=== PATIENT | female | born 1930 | race Caucasian/White ===

== ENCOUNTER 2017-10-29 12:18 | Emergency (ER) | payer OTHER ==
[~2017-10-29] VITALS: Ht 172.7 cm; Wt 55.3 kg
[~2017-10-29 12:18] MED LIST: ACETAMINOPHEN-1 EAC1 PO; ACETAMINOPHEN-1 EAC3 PO; ACID CONTROL75 MG PO; ADULT LOW DOSE81 MG PO; ALOE VERA; ASPIRIN81 M2 PO; ATORVASTATIN CA40 MG PO; AVELOX 400 MG400 MG PO; BACTRIM DS TAB1 EACH PO; BENTYL20 MG PO; CARAFATE1 GM/10 ML PO; CHERATUSSIN DA480 ML; CHERATUSSIN DA480 ML PO; CIPRO500 MG PO; CIPROFLOXACIN500 M1 PO; DIAZEPAM 2MG TAB2 MG PO; DOCUSATE SODIU100 MG PO; ESTROGEN; FLAGYL500 MG PO; FLEXERIL PO; FLONASE 0.05%50 MCG NASAL; FLONASE 0.05%50 MCG NS; FLUOXETINE HCL20 M1 PO; HYDROCODON-ACE1 EACH PO; HYDROCODONE-AP1 EAC6 PO; LIPITOR20 MG PO; LISINOPRIL20 MG PO; LISINOPRIL40 MG PO; MACROBID 100 M100 M3; MECLIZINE 25 MG25 M1 PO; MECLIZINE HCL25 M1 PO; MOTION RELIEF25 MG PO; PERCOCET 5-3251 EACH PO; PHENERGAN 25 MG25 M1 PO; POTASSIUM20 PO; PREMARIN1.25 MG PO; PROAIR HFA8.5 GM INH; PROMETHAZINE HC25 MG RECTAL; PROTONIX40 M2 PO; PROVERA10 MG PO; PROZAC 20 MG20 M1 PO; REMERON15 MG PO; SIMVASTATIN80 MG PO; SSD CREAM 1% 5050 G1 TOP; TRANSDERM-SCO1 PATC1 TRANSDERM; VALIUM2 MG PO; VICODIN 5-5001 EACH PO; ZANTAC 7575 MG PO; ZOCOR80 MG PO; ZOFRAN ODT4 MG PO; ZOFRAN4 MG PO; ZPAK PO; ZYRTEC10 M2 PO
[2017-10-29 15:08] VITALS: BP 146/54
== END 2017-10-29 15:09 | disposition home or self-care (01) ==
LOC: M.ERS 12:18
DX: M25.562 Pain in left knee (principal); M25.561 Pain in right knee; S39.92XA Unspecified injury of lower back, initial encounter; K21.9 Gastro-esophageal reflux disease without esophagitis; E78.5 Hyperlipidemia, unspecified; F41.9 Anxiety disorder, unspecified; I10 Essential (primary) hypertension; F32.9 Major depressive disorder, single episode, unspecified; Z88.0 Allergy status to penicillin; Z88.8 Allergy status to other drugs, medicaments and biological substances; Z85.048 Personal history of other malignant neoplasm of rectum, rectosigmoid junction, and anus; W10.8XXA Fall (on) (from) other stairs and steps, initial encounter; Y93.89 Activity, other specified; Y92.89 Other specified places as the place of occurrence of the external cause; Y99.8 Other external cause status

== ENCOUNTER → 2018-05-12 | Outpatient (CLI) | payer OTHER | LOC: M.RAD 11:28 | DX: I10 Essential (primary) hypertension (principal); I70.0 Atherosclerosis of aorta; R91.8 Other nonspecific abnormal finding of lung field; K21.9 Gastro-esophageal reflux disease without esophagitis ==

== ENCOUNTER 2018-09-19 15:59 | Emergency (ER) | payer OTHER ==
[~2018-09-19] VITALS: Ht 172.7 cm; Wt 56.2 kg
[2018-09-19 17:22] VITALS: BP 167/73
== END 2018-09-19 17:23 | disposition home or self-care (01) ==
LOC: M.ERS 15:59
DX: S01.81XA Laceration without foreign body of other part of head, initial encounter (principal); S51.811A Laceration without foreign body of right forearm, initial encounter; K21.9 Gastro-esophageal reflux disease without esophagitis; F32.9 Major depressive disorder, single episode, unspecified; E78.5 Hyperlipidemia, unspecified; F41.9 Anxiety disorder, unspecified; I10 Essential (primary) hypertension; Z88.4 Allergy status to anesthetic agent; Z88.0 Allergy status to penicillin; W01.198A Fall on same level from slipping, tripping and stumbling with subsequent striking against other object, initial encounter; Y92.89 Other specified places as the place of occurrence of the external cause; Y93.89 Activity, other specified; Y99.8 Other external cause status

== ENCOUNTER 2018-09-21 17:25 | Inpatient (IN) | payer OTHER ==
[~2018-09-21] VITALS: Ht 172.7 cm; Wt 57.2 kg
--- NOTE | ~2018-09-21 | CON ---
[address] [address] CONSULTATION Name: MARGARETMARKJARETH BLAIR Room: [address] IN M.R.#: [id number] Admission: 09/21/18 Attend Phys: Sharon Seals MD Discharge: 09/23/18 Date of : 30 Report #: [id number] THIS REPORT FOR: //name// CC: SHARON Mahannton DATE OF SERVICE: 09/23/2018 REQUESTING PHYSICIAN: Dr. Sharon Seals. REASON FOR CONSULT: Abdominal pain, diarrhea, nausea and vomiting. HISTORY OF PRESENT ILLNESS: This is an 87-year-old female with diagnosis of rectal cancer dating back to 2012. The patient never underwent surgery, but had chemoradiation therapy. She has not had a colonoscopy since her chemoradiation. She denies any rectal bleeding, but reports that what prompted her to come to hospital was abdominal pain, which was generalized, associated with some nausea and diarrhea. Since her hospitalization, her diarrhea and abdominal pain has resolved. She no longer complains of nausea. She is comfortably sitting and eating her meal. The patient underwent CT of abdomen and pelvis, which showed some thickening of the colon in proximal transverse colon. There was no leukocytosis, but there was some mild pancytopenia. PAST MEDICAL HISTORY: Significant for history of dyslipidemia, hypertension, gastroesophageal reflux disease, depression, anal cancer, status post chemoradiation therapy without surgery. ALLERGIES: SIGNIFICANT TO DIAZEPAM AND PENICILLIN. MEDICATIONS: Please refer to MAR. SOCIAL HISTORY: The patient lives at home. Denies tobacco or alcohol use. She has supportive daughters. FAMILY HISTORY: Noncontributory. PHYSICAL EXAMINATION: VITAL SIGNS: Reveal blood pressure of 138/49, respirations 18, pulse 71, temperature 98.1. LUNGS: Clear. CARDIOVASCULAR: Regular. ABDOMEN: Soft, nontender, nondistended. Bowel sounds are positive. NEUROLOGIC: The patient is alert and [place] x 3. [place] [address] CONSULTATION Name: NERIS ROBLES Room: [address]#: [id number] Admission: 09/21/18 Attend Phys: Sharon Seals MD Discharge: 09/23/18 Date of : 30 Report #: [id number] SKIN: The patient has periorbital hematoma that she claims it happened to her after falling on ice couple of days prior to admission. LABORATORY DATA: Reveals sodium of 144, potassium 3.5, BUN is 11, creatinine 0.9, glucose is 90, AST 17, ALT 15, with alkaline phosphatase 104. WBC is 3.3, with hemoglobin of 8.8 and platelets of 83. IMAGING: As discussed above. ASSESSMENT AND PLAN: The patient with history of rectal cancer, status post chemoradiation therapy without surgery who presents with abdominal pain and diarrhea. CT suggestive of thickening of the colon in the transverse colon. There is also pancytopenia. Since the patient's symptoms have completely resolved and she is awaiting discharge, we will follow up in the office in a couple of weeks. I told the patient and her daughters that if her symptoms persist, we will consider colonoscopy to further investigate the abnormal finding in CT. The patient and her daughters are agreeable with plan. By: [id number] Roberts MD /nt
[2018-09-21 17:27] VITALS: BP 156/51
[2018-09-21 17:51] LABS: HEMOGLOBIN 10.7 gm/dL (12.0-15.0); MCH 30.3 pg (26.0-34.0); MCHC 32.5 g/dL (28.0-37.0); MCV 93.1 fL (80.0-100.0); MPV 7.1 fl. (7.2-11.1); NUCLEATED RBCS 0 /100WBC; PLATELET COUNT* 113 thou/uL (150-400); RBC 3.54 mil/uL (4.20-5.00); RDW-CV 14.6 % (10.5-14.5); WBC 8.4 thou/uL (4.0-11.0)
[2018-09-21 17:59] LABS: ANION GAP 8 mmol/L (7-16); BUN 19 mg/dL (7-18); CALCIUM 8.4 mg/dL (8.5-10.1); CHLORIDE 108 mmol/L (98-107); CO2 27 mmol/L (21-32); GLUCOSE 102 mg/dL (70-99); POTASSIUM 3.6 mmol/L (3.5-5.1); SODIUM 143 mmol/L (136-145)
[2018-09-21 18:11] LABS: ALBUMIN 3.3 g/dL (3.4-5.0); ALKALINE PHOSPHATASE 104 U/L (46-116); LIPASE 99 U/L (73-393); SGOT 17 U/L (15-37); SGPT 15 U/L (30-65); TOTAL BILIRUBIN 0.5 mg/dL (<0.1-1.0); TOTAL PROTEIN 6.6 g/dL (6.4-8.2); TROPONIN-I LEVEL <0.06 ng/mL (<0.06)
[2018-09-21 18:17] LABS: ABSOLUTE EOSINOPHILS 0.1 thou/uL (0.0-0.7); ABSOLUTE LYMPHOCYTES 0.2 thou/uL (0.8-5.3); ABSOLUTE MONOCYTES 0.3 thou/uL (0.0-1.2); ABSOLUTE NEUTROPHILS 7.8 thou/uL (1.6-8.1)
[2018-09-21 18:22] LABS: PLATELET ESTIMATE DECREASED
[2018-09-21 18:38] LABS: APTT 27.3 Seconds (25.0-31.3); PROTIME 10.3 Seconds (9.20-11.50)
[2018-09-21 19:10] LABS: URINE BILIRUBIN NEGATIVE (Negative); URINE BLOOD NEGATIVE (Negative); URINE CLARITY CLEAR; URINE COLOR YELLOW; URINE GLUCOSE-RANDOM NEGATIVE (Negative); URINE KETONES NEGATIVE (Negative); URINE LEUKOCYTES-REFLEX NEGATIVE (Negative); URINE NITRITE-REFLEX NEGATIVE (Negative); URINE PROTEIN NEGATIVE (Negative); URINE SPECIFIC GRAVITY <= 1.005 (1.005-1.030); URINE UROBILINOGEN 0.2 E.U./dl (0.2-1.0)
[2018-09-21 20:05] VITALS: BP 150/60
[2018-09-21 20:20] VITALS: BP 154/58
[2018-09-22] VITALS: BP 152/53
[2018-09-22 04:00] VITALS: BP 149/60
[2018-09-22 05:28] LABS: HEMATOCRIT 30.1 % (37.0-47.0); HEMOGLOBIN 10.1 gm/dL (12.0-15.0); MCH 31.1 pg (26.0-34.0); MCHC 33.6 g/dL (28.0-37.0); MCV 92.4 fL (80.0-100.0); MPV 7.6 fl. (7.2-11.1); RBC 3.25 mil/uL (4.20-5.00); RDW-CV 15.2 % (10.5-14.5); WBC 4.8 thou/uL (4.0-11.0)
[2018-09-22 05:34] LABS: CALCIUM 8.2 mg/dL (8.5-10.1); CREATININE 0.9 mg/dL (0.6-1.3); MAGNESIUM 1.8 mg/dL (1.8-2.4); POTASSIUM 3.6 mmol/L (3.5-5.1)
--- NOTE | 2018-09-22 06:59 | NUR ---
RECEIVED REPORT AND ASSUMED CARE AT 2015. PT TRANSPORTED FROM ED TO ROOM 210. VSS, CARDIAC MONITORING IN PLACE. PT DENIES COMPLAINTS PAIN. PT ORIENTATED TO ROOM, FALL POLICY, CALL LIGHT. ASSESSMENT COMPELTED CHARTED. ADMISSION COMPLETED BY NURSING. PT UP SBA, ON RA. BED LOCKED IN LOWEST POSITION, CALL LIGHT WITHIN REACH. HOURLY ROUNDING COMPELTED AND ALL NEEDS MET. NURSING WILL CONTINUE TO MONITOR
[2018-09-22 08:20] VITALS: BP 140/55
--- NOTE | 2018-09-22 10:22 | EKG ---
[place] [address] ELECTROCARDIOGRAM REPORT Name: NERIS ROBLES Room: [address] ADM IN .R.#: [id number] Admission: 09/21/18 Attend Phys: Sharon Seals MD Discharge: Date of : 30 Report #: [id number] THIS REPORT FOR: //name// [facility] ED Test Date: 2018-09-21 Test Time: 17:54:57 Pat Name: NERIS ROBLES Department: Room: [facility] Gender: F Oxygen System Tester: EJ : 1930 Requested By: John Lopez Order Number: [id number] MD: Salvador Leblanc Measurements Intervals [place] Rate: 86 P: [place]: QRS: 37 QRSD: 108 T: 48 QT: 388 QTc: 464 Interpretive Statements artifact, nsr mild sinus arrhythmia Compared to ECG 07/08/2017 08:40:14 Sinus rhythm no longer present Electronically Signed On 09-22-2018 10:22:38 AMMONIUM SULFATE OPERATOR by Salvador Leblanc [email or web address] <ELECTRONICALLY SIGNED> By: Salvador Leblanc MD, FAC 09/22/18 1022 1754 1754 Salvador Leblanc MD, [facility] /EPI
--- NOTE | 2018-09-22 10:45 | NUR ---
ASSUMED CARE OF PT THIS AM AROUND 0715- REGIONAL DIRECTOR IN PLACE ORDERED, TRACING SR- UPON ASSESSMENT PT NOTED TO BE RESTING IN BED- PT A&O X4- CONTINENT OF BOWEL AND BLADDER- SBA WITH TRANSFERS FOR SAFETY-LCTA, RESP EVEN AND UN-LABORED- VSS, O2 SAT 94% ON RA- ABD SOFT/ROUND/NON-TENDER, BS X4 QUADS- LAST BM REPORTED 09-21-18- IV NOTED TO LEFT AC INTACT, IVF INFUSSING PRESCIBED- IV ABT GIVEN THIS AM PRESCIBED, NO ADVERSE REACTIONS TO NOTE- CARDIOLOGY HERE TO ASSESS THIS AM WITH ASPIRIN 81MG STARTED AND ECHO ORDERED- GOOD PO INTAKE NOTED THIS AM WITH BREAKFAST- PT DENIES ANY C/O PAIN/DISCOMFORT AT THIS TIME- CALL LIGHT AND PERSONAL BELONGINGS WITH IN REACH- HOURLY ROUNDS IN PLACE R/T SAFETY/NEEDS- ALL NEEDS MET AT THIS TIME-WCTM
[2018-09-22 12:20] VITALS: BP 119/39
--- NOTE | 2018-09-22 14:11 | 2DMMODE ---
[place] [address] 2 D/M-MODE ECHOCARDIOGRAM Name: NERIS ROBLES Room: [address] IN [facility]#: [id number] Admission: 09/21/18 Attend Phys: Sharon Seals, Discharge: Date of : 30 Date of Service: 09/22/18 1411 Report #: [id number] THIS REPORT FOR: //name// APPROVED REPORT Study performed: 09/22/2018 11:06:19 EXAM: Comprehensive 2D, Doppler, and color-flow Echocardiogram Patient Location: In-Patient Room #: 210 Status: routine BSA: 1.65 HR: 77 bpm BP: 140/55 mmHg Rhythm: NSR Other Information Study Quality: Good Indications Atrial Fibrillation 2D Dimensions IVSd: 10.17 (7-11mm) LVOT Diam: 19.50 (18-24mm) LVDd: 43.89 mm PWd: 9.62 (7-11mm) Ascending Ao: 29.71 (22-36mm) LVDs: 24.61 (25-40mm) Aortic Root: 31.77 mm Volumes Left Atrial Volume (Systole) LA ESV Index: 25.60 mL/m2 Aortic Valve AoV Peak Allen.: 1.54 m/s AO Peak Gr.: 9.49 mmHg LVOT Max P.92 mmHg AO Mean Gr.: 5.08 mmHg LVOT Mean P.99 mmHg LVOT Max V: 1.22 m/s AO V2 VTI: 30.16 cm LVOT Mean V: 0.80 m/s MORGAN (VTI): 2.55 cm2 LVOT V1 VTI: 25.72 cm AI [place]: 3.09 m/s2 AI PHT: 374.33 ms Mitral Valve E/A Ratio: 0.77 [place] [address] 2 D/M-MODE ECHOCARDIOGRAM Name: NERIS ROBLES Room: [address] IN .R.#: [id number] Admission: 09/21/18 Attend Phys: Sharon Seals, Discharge: Date of : 30 Date of Service: 09/22/18 1411 Report #: [id number] MV Decel. Time: 227.91 ms MV E Max Allen.: 0.93 m/s MV PHT: 66.09 ms MVA (PHT): 3.33 cm2 TDI E/Lateral E': 11.63 E/Medial E': 11.63 Medial E' Allen.: 0.08 m/s Lateral E' Allen.: 0.08 m/s Pulmonary Valve PV Peak Allen.: 1.06 m/s PV Peak Gr.: 4.52 mmHg Tricuspid Valve RAP Estimate: 5.00 mmHg TR Peak Gr.: 29.45 mmHg RVSP: 34.00 mmHg PA Pressure: 34.00 mmHg Left Ventricle The left ventricle is normal size. There is normal LV segmental wall motion. Borderline concentric left ventricular hypertrophy. Left ventricular systolic function is normal. The left ventricular ejection fraction is within the normal range. LVEF is 65%. Grade I - abnormal relaxation pattern. Right Ventricle The right ventricle is normal size. The right ventricular systolic function is normal. Atria The left atrium size is normal. The right atrium size is normal. Aortic Valve The aortic valve is normal in structure. Mild aortic regurgitation. There is no aortic valvular stenosis. Mitral Valve The mitral valve is normal in structure. There is no mitral valve regurgitation noted. No evidence of mitral valve stenosis. Tricuspid Valve The tricuspid valve is normal in structure. Trace tricuspid regurgitation. Mild pulmonary hypertension[place] [address] 2 D/M-MODE ECHOCARDIOGRAM Name: NERIS ROBLES Room: [address] IN [facility]#: [id number] Admission: 09/21/18 Attend Phys: Sharon Seals, Discharge: Date of : 30 Date of Service: 09/22/18 1411 Report #: [id number] The pulmonary valve is normal in structure. Mild pulmonic regurgitation. Great Vessels The aortic root is normal in size. IVC is normal in size and collapses >50% with inspiration. Pericardium There is no pericardial effusion. <Conclusion> LVEF is 65%. There is normal LV segmental wall motion. Borderline concentric left ventricular hypertrophy. Grade I - abnormal relaxation pattern. Mild aortic regurgitation. There is no aortic valvular stenosis. <ELECTRONICALLY SIGNED> By: Salvador Leblanc MD, FACC 09/22/18 141 141 10 Salvador Leblanc MD, FACC /INF
--- NOTE | 2018-09-22 14:58 | NUR ---
Pt is A&O. Resides at home with her dtr. Independent with ADLs, continues to cook and clean, children provide transportation. Pt has a walker and wc that she can use for mobility. Hx of HH 2012, does not recall with which agency. No hx of SNF. Goal is home at [place], no needs anticipated. Both dtr and Pt do not want HH. Following.
[2018-09-22 15:39] VITALS: BP 127/38
--- NOTE | 2018-09-22 16:44 | NUR ---
PT CURRENTLY RESTING IN BED, FRIEND AT SIDE VISITING- ADMINISTRATIVE ASSISTANT RECEPTIONIST IN PLACE ORDERED, TRACING SR- IV TO LEFT AC INTACT, IVF INFUSSING PRESCIBED- GOOD PO INTAKE NOTED WITH MEALS- ECHO COMPLETED THIS SHIFT PRESCIBED, LVEF NOTED AT 65% WITH MILD AORTIC REGURGITATION- GI CONSULTED R/T COLITIS AND H/O RECTAL CANCER THIS SHIFT- CALL LIGHT AND PERSONAL BELONGINGS WITH IN REACH- PT MAKES NEEDS KNOWN- ALL NEEDS MET AT THIS TIME-WCTM
[2018-09-22 20:14] VITALS: BP 123/45
[2018-09-23] VITALS: BP 130/51
[2018-09-23 04:00] VITALS: BP 148/48
[2018-09-23 05:00] LABS: ABSOLUTE LYMPHOCYTES 0.4 thou/uL (0.8-5.3); ABSOLUTE MONOCYTES 0.3 thou/uL (0.0-1.2); ABSOLUTE NEUTROPHILS 2.5 thou/uL (1.6-8.1); BASOPHILS 0.5 %; EOSINOPHILS 1.3 %; HEMATOCRIT 26.7 % (37.0-47.0); HEMOGLOBIN 8.8 gm/dL (12.0-15.0); LYMPHOCYTES 12.4 %; MCH 30.5 pg (26.0-34.0); MCHC 32.9 g/dL (28.0-37.0); MCV 92.8 fL (80.0-100.0); MPV 7.4 fl. (7.2-11.1); NUCLEATED RBCS 0 /100WBC; PLATELET COUNT* 83 thou/uL (150-400); POLYS 76.8 %; RBC 2.88 mil/uL (4.20-5.00); WBC 3.3 thou/uL (4.0-11.0)
[2018-09-23 05:21] LABS: CALCIUM 8.3 mg/dL (8.5-10.1); CREATININE 0.9 mg/dL (0.6-1.3); POTASSIUM 3.5 mmol/L (3.5-5.1)
--- NOTE | 2018-09-23 05:27 | NUR ---
RECEIVED REPORT AND ASSUMED CARE AT 1900. VSS. CARDIAC MONITORING IN PLACE. PT DENIES ANY COMPLAINTS OF PAIN. ASSESSMENT COMPLETED CHARTED. DISCUSSED PLAN OF CARE WITH PT, VERBALIZED UNDERSTANDING. PT UP SBA, ON RA. BED LOCKED IN LOWEST POSITION, CALL LIGHT WITHIN REACH, BED ALARM ON. HOURLY ROUNDING COMPLETED AND ALL NEEDS MET. NURSING WILL CONTINUE TO MONITOR
[2018-09-23 08:13] VITALS: BP 139/46
--- NOTE | 2018-09-23 09:44 | NUR ---
ASSUMED CARE OF PT THIS AM AROUND 0715- BLADE SHARPENER IN PLACE ORDERED, TRACING SR- UPON ASSESSMENT PT NOTED TO BE RESTING IN BED- PT A&O X4- CONTINENT OF BOWEL AND BLADDER- UP SBA WITH TRANSFRES FOR SAFETY- LCTA, DIMINISHED IN BASES- VSS, O2 SAT 93% ON RA-RESP EVEN AND UN-LABORED- ABD SOFT/ROUND/NON-TENDER, BS X4 QUADS- LAST BM REPORTED 09/22/18- IV NOTED TO RIGHT FA INTACT AND SL- GOOD PO INTAKE NOTED THIS AM WITH BREAKFAST- UP TO BED SIDE CHAIR, TOLERATING WELL- LEFT EYE NOTED WITH BRUSING/SWELLING/BANDAGE IN PLACE INDICATED- IVF D/C'D THIS AM- PT DENIES ANY C/O PAIN/DISCOMFORT AT THIS TIME- CALL LIGHT AND PERSONAL BELONGINGS WITH IN REACH- HOURLY ROUNDS IN PLACE R/T SAFETY/NEEDS- ALL NEEDS MET AT THIS TIME-WCTM
[2018-09-23] MEDS ORDERED: CHILDREN'S ASPI81 MG PO (09:49)
[2018-09-23] MEDS ORDERED: FLAGYL500 M1 PO (09:50)
[2018-09-23] MEDS ORDERED: CIPRO250 M1 PO (09:50)
[2018-09-23 09:53] VITALS: BP 139/46
[2018-09-23 11:42] VITALS: BP 138/49
--- NOTE | 2018-09-23 12:41 | NUR ---
ORDERS RECIEVIED THIS SHIFT FOR OKAY TO D/C HOME POST OT/PT EVAL FOR SAFETY AND IF NEEDED HH- PT/OT HERE TO ASSESS WITH NO NEEDS REPORTED FOR HH- PT AND DAUGHTER REFUSED HH PER CM- IV TO RIGHT FA D/C'D ALONG WITH SILO MAN PRIOR TO D/C- D/C TEACHING/EDUCATION GIVEN TO PT PRIOR TO D/C WITH ALL QUESTIONS AND CONCERNS ADDRESSED- WRITTEN EDUCATION ALONG WITH SCRIPTS PROVIDED TO PT AND DAUGHTER AT TIME OF D/C- BELONGINGS PACKED AND ACCOUNTED FOR PER PT AND DAUGHTER PRIOR TO D/C- LEFT FOREHEAD CLEANED WITH PICTURE OBTAINED AND PLACED ON CHART FOR VIEWING; BANDAIDE REAPPLIED- DRESSING CHANGED TO LEFT FA WITH PICTURE OBTAINED AND PLAED ON CHART FOR VIEWING PRIOR TO D/C- RIGHT FA CLEANED WITH WW, PAT DRY WITH XERFORM GAUZE APPLIED AND COVERED WITH 4X4, WRAPPED WITH GAUZE AND SECURED WITH TAPE PRIOR TO D/C- PT CURRENLTY EATING LUNCH- DAUGHTER AT SIDE AWAITING PT TO BE READY FOR D/C- ALL NEEDS MET AT THIS TIME-WCTM
--- NOTE | 2018-09-23 13:39 | CON ---
[address] [address] CONSULTATION Name: NERIS ROBLES Room: [address] IN M.R.#: [id number] Admission: 09/21/18 Attend Phys: Sharon Seals MD Discharge: 09/23/18 Date of : 30 Report #: [id number] THIS REPORT FOR: //name// CC: Sharon Schulz DATE OF SERVICE: 09/22/2018 INPATIENT CONSULTATION CHIEF COMPLAINT: Nausea, vomiting and fall. HISTORY OF PRESENT ILLNESS: The patient is an 87-year-old female we are asked to see from a cardiovascular standpoint. There was concern she went into atrial fibrillation. She initially presented with nausea and vomiting and weakness, had an acute onset within the last 48 hours. She did have a fall earlier this week and did hit her head, but scanning of her brain was normal. She does have a large ecchymosis over her left eye. There was concern she briefly went into atrial fibrillation; however, I do not have those rhythm strips. There was an ECG where she had artifact in the sinus arrhythmia, but overnight on telemetry, she has remained in a sinus rhythm. She will have some complaints of palpitations, though they are intermittently, only occurring with stress and anxiety and last less than 5 minutes. She has never had a stroke or TIA. Her fall was mechanical; she had slipped outside in the snow. She has been treated for high blood pressure and hyperlipidemia. Her primary care is Dr. Schulz. PAST MEDICAL HISTORY: Hypertension, hyperlipidemia, osteoarthritis, urinary tract infections and chronic vertigo and GERD. ALLERGIES: DIAZEPAM AND PENICILLIN. MEDICATIONS: Her home medications include atorvastatin 40 mg daily, lisinopril 20 mg daily, meclizine p.r.n. and potassium chloride. PAST SURGICAL HISTORY: Prior anal cancer, status post surgery. SOCIAL HISTORY: She is a nonsmoker, does not drink. REVIEW OF SYSTEMS: GASTROINTESTINAL: Positive nausea. Positive vomiting. No hematemesis or melena. CARDIOVASCULAR: No chest pain. Positive palpitations. No orthopnea, no PND and no edema. NEUROLOGIC: Denies headaches, blurry vision or slurred [place] [address] CONSULTATION Name: NERIS ROBLES Room: [address]#: [id number] Admission: 09/21/18 Attend Phys: Sharon Seals MD Discharge: 09/23/18 Date of : 30 Report #: [id number] seizures. HEENT: Eyes, denies any blurred vision or loss of vision. The patient has no history of facial numbness. PULMONARY: No wheezing or cough. SKIN: No rashes. PHYSICAL EXAMINATION: VITAL SIGNS: Blood pressure is 140/55, pulse is 79 and in sinus rhythm. GENERAL: This is a pleasant elderly female. She is sitting on the side of the bed, alert and oriented. HEENT: Head, there is evidence of ecchymosis over her left eye, large. Eyes, EOMs are intact. There is no scleral icterus or bleeding. NEUROLOGIC: No focal deficits. NECK: There is no jugular venous distention. Upstrokes are normal. I cannot hear a bruit. CARDIOVASCULAR EXAMINATION: Regular. There is faint systolic murmur. There is no S3. LUNGS: Clear to auscultation bilaterally. ABDOMEN: Nontender. EXTREMITIES: There is peripheral wasting. There is no peripheral edema. SKIN: There are numerous ecchymoses. LABORATORY DATA: As noted, electrocardiogram on presentation showed a sinus rhythm with normal ST segments. Hemoglobin is 10.1. Sodium is 142, potassium is 3.6, chloride 108, BUN is 13 and creatinine is 0.9. Troponin I is 0.06. Head CT shows senescent changes, age appropriate and no intracranial abnormality. IMPRESSION AND PLAN: 1. Abnormal ECG, questionable atrial fibrillation. At this point in time, I have not seen documented atrial fibrillation, but she may have had this on a rhythm strip in the Emergency Room. She does have complaints of palpitations and numerous AFib risk factors. However, given that she is predominantly in a sinus rhythm and minimally symptomatic, I would proceed with a conservative approach and continue with her home blood pressure medications. I would use only aspirin for anticoagulation. 2. Mechanical fall. At this point, she is not a good candidate for oral anticoagulation given her advanced age and documented fall history. 3. Hypertension. I will order an echocardiogram to assess LV function. She seems to be on appropriate medications. 4. Nausea and vomiting. This seems like a viral syndrome given the acute [address] [place] [address] CONSULTATION Name: NERIS ROBLES Room: [address] IN ..#: [id number] Admission: 09/21/18 Attend Phys: Sharon Seals MD Discharge: 09/23/18 Date of : 30 Report #: [id number] onset. She does also have a history of rectal carcinoma, though. She may have some degree of volume depletion. <ELECTRONICALLY SIGNED> By: Salvador Leblanc MD, FACC 09/23/18 1339 0948 [id number] Leblanc MD, FACC /nt
== END 2018-09-23 13:02 | disposition home or self-care (01) | DRG 371 ==
LOC: M.ERS 17:25 → M.2W 18:20 → M.TBA-ER 18:20 → M.2W 19:37
PROVIDERS: Family Medicine; Internal Medicine; ADMIT Internal Medicine
DX: A04.9 Bacterial intestinal infection, unspecified (principal); J69.0 Pneumonitis due to inhalation of food and vomit; R65.10 Systemic inflammatory response syndrome (SIRS) of non-infectious origin without acute organ dysfunction; D61.818 Other pancytopenia; K21.9 Gastro-esophageal reflux disease without esophagitis; E78.5 Hyperlipidemia, unspecified; F41.9 Anxiety disorder, unspecified; I10 Essential (primary) hypertension; F32.9 Major depressive disorder, single episode, unspecified; M19.90 Unspecified osteoarthritis, unspecified site; R58 Hemorrhage, not elsewhere classified; E86.0 Dehydration; I48.91 Unspecified atrial fibrillation; Z85.048 Personal history of other malignant neoplasm of rectum, rectosigmoid junction, and anus; Z92.21 Personal history of antineoplastic chemotherapy; Z92.3 Personal history of irradiation; Z88.0 Allergy status to penicillin; Z88.8 Allergy status to other drugs, medicaments and biological substances; Z79.899 Other long term (current) drug therapy

== ENCOUNTER 2018-10-26 18:24 | Inpatient (IN) | payer OTHER ==
[~2018-10-26] VITALS: Ht 172.7 cm; Wt 53.5 kg
[~2018-10-26 18:24] MED LIST changes: +CHILDREN'S ASPI81 MG PO; +CIPRO250 M1 PO; +FLAGYL500 M1 PO
[2018-10-26 18:38] VITALS: BP 141/48
[2018-10-26 19:13] LABS: HEMATOCRIT 34.6 % (37.0-47.0); HEMOGLOBIN 11.4 gm/dL (12.0-15.0); MCH 30.1 pg (26.0-34.0); MCHC 32.9 g/dL (28.0-37.0); MCV 91.4 fL (80.0-100.0); MPV 7.2 fl. (7.2-11.1); NUCLEATED RBCS 0 /100WBC; PLATELET COUNT* 162 thou/uL (150-400); RBC 3.79 mil/uL (4.20-5.00); RDW-CV 13.7 % (10.5-14.5); WBC 6.3 thou/uL (4.0-11.0)
[2018-10-26 19:28] LABS: APTT 28.3 Seconds (25.0-31.3)
[2018-10-26 19:32] LABS: POTASSIUM 3.8 mmol/L (3.5-5.1); TROPONIN-I LEVEL 0.09 ng/mL (<0.06)
[2018-10-26 19:34] LABS: CALCIUM 9.3 mg/dL (8.5-10.1)
[2018-10-26 19:45] LABS: ALBUMIN 3.4 g/dL (3.4-5.0); TOTAL BILIRUBIN 0.3 mg/dL (<0.1-1.0); TOTAL PROTEIN 7.4 g/dL (6.4-8.2)
[2018-10-26 19:48] LABS: ABSOLUTE LYMPHOCYTES 0.3 thou/uL (0.8-5.3); ABSOLUTE MONOCYTES 0.2 thou/uL (0.0-1.2); ABSOLUTE NEUTROPHILS 5.9 thou/uL (1.6-8.1); PLATELET ESTIMATE ADEQUATE
[2018-10-26 21:24] VITALS: BP 140/55
--- NOTE | 2018-10-26 21:25 | NUR ---
REPORT TAKEN FROM QI, AWAITING PATIENT'S ARRIVAL.
[2018-10-26 21:40] VITALS: BP 145/62
[2018-10-27] VITALS: BP 111/65
[2018-10-27 04:00] VITALS: BP 127/52
--- NOTE | 2018-10-27 04:55 | NUR ---
PATIENT RESTED IN BED, NO ACUTE CHANGES. PATIENT DID NOT SHOW SIGNS OF DISTRESS OR SOA. FALL PRECAUTIONS IN PLACE, CALL LIGHT WITHIN REACH, HOURLY ROUNDING OBSERVED, BED ALARM ON.
[2018-10-27 08:00] VITALS: BP 131/51
[2018-10-27 12:04] VITALS: BP 123/63
--- NOTE | 2018-10-27 12:04 | NUR ---
Nutrition: Consult received for "weight change." Per [facility], pt weighed ~130s in 2012. Then, pt has weighed 120-130# since 2016. Does not appear to be any significant wt change for several yrs. Pt is admitted with PNA. H/o anal cancer/chemo/RAD, GERD. Takes albuterol, aspirin. Current wt: 120#. Currently NPO. Underweight R/T physique AEB BMI 18.3 despite stable wt x several yrs. RD will follow for diet order, need for supplement, po intake, labs, wt, 11/01/18.
--- NOTE | 2018-10-27 12:51 | NUR ---
PT ALERT AND ORIENTED. TELE TRACKIN NSR AND ALL VSS ON ROOM AIR. PT DENIES CP, SOA. STATES SHE IS FEELING BETTER. FAMILY AT BEDSIDE. EDUCATED ON SAFETY AND PLAN OF CARE. PLEASE SEE ASSESSMENT FOR ADDITIONAL INFORMATION. WILL CONTINUE TO MONITOR
--- NOTE | 2018-10-27 13:44 | NUR ---
MET WITH PT AND DTR/ESTELA TO DISCUSS HOME SITUATION/DC PLANNING. PT LIVES WITH HER DTR/NEDRA. PT IS INDEPENDENT WITH ADLS. USES NO EQUIPMENT BUT HAS A WALKER AND W/C IF NEEDED. SHE HASN'T HAD HH OR BEEN TO SNF. DTR/ESTELA IS DPOA. PT DENIES DC NEEDS AND WANTS TO GO HOME SOON. WILL FOLLOW
[2018-10-27 16:20] VITALS: BP 128/48
--- NOTE | 2018-10-27 18:23 | EKG ---
[place] [address] ELECTROCARDIOGRAM REPORT Name: MARGARETNERIS Room: [address] ADM IN .R.#: [id number] Admission: 10/26/18 Attend Phys: Eileen Slade Discharge: Date of : 30 Report #: [id number] THIS REPORT FOR: //name// [facility] Test Date: 2018-10-26 Test Time: 18:58:05 Pat Name: NERIS ROBLES Department: Room: [facility] Gender: Senior Cyber Intelligence Analyst: Alejandro PIERCE : 1930 Requested By: Karena Miranda Order Number: [id number] : Murali Greene Measurements Intervals [place] Rate: 92 P: 73 [place]: 171 QRS: 46 QRSD: 94 T: 37 QT: 361 QTc: 447 Interpretive Statements Sinus rhythm Compared to ECG 09/21/2018 17:54:57 Sinus arrhythmia no longer present Electronically Signed On 10-27-2018 18:23:22 CHEMISTRY ACCOUNT MANAGER by Murali Greene [email or web address] <ELECTRONICALLY SIGNED> By: Murali Greene MD, [facility] 10/27/18 1823 57 57 Murali Greene MD, FACC /EPI
[2018-10-27 18:55] LABS: URINE BILIRUBIN NEGATIVE (Negative); URINE BLOOD 2+ (Negative); URINE CLARITY SL CLOUDY; URINE COLOR YELLOW; URINE GLUCOSE-RANDOM NEGATIVE (Negative); URINE KETONES NEGATIVE (Negative); URINE LEUKOCYTES-REFLEX 1+ (Negative); URINE NITRITE-REFLEX NEGATIVE (Negative); URINE PROTEIN NEGATIVE (Negative); URINE SPECIFIC GRAVITY >= 1.030 (1.005-1.030); URINE UROBILINOGEN 0.2 E.U./dl (0.2-1.0)
[2018-10-27 19:01] LABS: CASTS None Seen /LPF (None Seen); CRYSTALS None Seen /LPF (None Seen); SQUAMOUS 0-3 Few /LPF (0-3); URINE RBC 3-10 Few /HPF (0-2); URINE WBC-REFLEX >25 Many /HPF (0-5)
[2018-10-27 20:00] VITALS: BP 132/61
[2018-10-28] VITALS: BP 131/61
[2018-10-28 04:00] VITALS: BP 133/91
--- NOTE | 2018-10-28 04:35 | NUR ---
PATIENT RESTED IN BED, NO ACUTE CHANGES. PATIENT DID NOT SHOW SIGNS OF SOA OR DISTRESS. FALL PRECAUTIONS IN PLACE, CALL LIGHT WITHIN REACH, HOURLY ROUNDING OBSERVED, BED ALARM ON.
[2018-10-28 05:02] LABS: ABSOLUTE LYMPHOCYTES 0.4 thou/uL (0.8-5.3); ABSOLUTE MONOCYTES 0.2 thou/uL (0.0-1.2); ABSOLUTE NEUTROPHILS 2.6 thou/uL (1.6-8.1); BASOPHILS 0.3 %; EOSINOPHILS 0.9 %; HEMATOCRIT 28.3 % (37.0-47.0); LYMPHOCYTES 13.1 %; MCH 29.8 pg (26.0-34.0); MCHC 32.8 g/dL (28.0-37.0); MONOCYTES 6.5 %; MPV 7.4 fl. (7.2-11.1); NUCLEATED RBCS 0 /100WBC; PLATELET COUNT* 116 thou/uL (150-400); POLYS 79.2 %; RBC 3.11 mil/uL (4.20-5.00); RDW-CV 14.2 % (10.5-14.5); WBC 3.2 thou/uL (4.0-11.0)
[2018-10-28 05:11] LABS: CREATININE 0.9 mg/dL (0.6-1.3); POTASSIUM 3.6 mmol/L (3.5-5.1)
[2018-10-28 05:24] LABS: HEMOGLOBIN 9.3 gm/dL (12.0-15.0)
[2018-10-28 08:00] VITALS: BP 130/50
--- NOTE | 2018-10-28 08:00 | NUR ---
ASSUMED PT CARE AT 0700, PT LYING IN BED, CALL LIGHT IN REACH, FALL PRECAUTIONS IN PLACE. A&O X4, UP WITH STANDBY ASSIST. SHOWPLACE MANAGER TRACING SINUS RHYTHM, VSS, REMAINS ON RA, LS COARSE. DENIES ANY SOA OR PAIN AT THIS TIME. WILL CONT POC.
[2018-10-28 12:54] VITALS: BP 105/63
[2018-10-28 16:00] VITALS: BP 125/46
--- NOTE | 2018-10-28 19:03 | NUR ---
PT LYING IN BED, CALL LIGHT IN REACH, FALL PRECAUTIONS IN PLACE. VSS, REMAINS ON RA, LS COARSE, DENIES ANY SOA/PAIN. IV ANTIBIOTICS DISCONTINUED AND STARTED ON PO ABTS, PT TOLERATING WELL AND EXPRESSING DESIRE TO GO HOME, POSSIBLE DC HOME TOMORROW. A&O X4, UP WITH STANDBY, HOURLY ROUNDING COMPLETED, REMAINS SINUS RHYTHM ON LEAD ATG DEVELOPER.
[2018-10-28 20:00] VITALS: BP 141/66
[2018-10-29] VITALS: BP 129/50
[2018-10-29 04:00] VITALS: BP 133/58
--- NOTE | 2018-10-29 05:13 | NUR ---
PATIENT RESTED IN BED, NO ACUTE CHANGES. PATIENT DOES NOT APPEAR TO BE IN DISTRESS. PATIENT DID NOT SHOW SIGNS OF SOA. FALL PRECAUTIONS IN PLACE, CALL LIGHT WITHIN REACH, HOURLY ROUNDING OBSERVED, BED ALARM ON.
[2018-10-29 06:14] LABS: ABSOLUTE EOSINOPHILS 0.1 thou/uL (0.0-0.7); ABSOLUTE LYMPHOCYTES 0.4 thou/uL (0.8-5.3); ABSOLUTE MONOCYTES 0.2 thou/uL (0.0-1.2); ABSOLUTE NEUTROPHILS 1.7 thou/uL (1.6-8.1); BASOPHILS 0.5 %; EOSINOPHILS 2.2 %; HEMATOCRIT 29.7 % (37.0-47.0); HEMOGLOBIN 9.8 gm/dL (12.0-15.0); LYMPHOCYTES 17.1 %; MCH 29.9 pg (26.0-34.0); MCHC 32.8 g/dL (28.0-37.0); MCV 91.2 fL (80.0-100.0); MPV 7.2 fl. (7.2-11.1); NUCLEATED RBCS 0 /100WBC; PLATELET COUNT* 117 thou/uL (150-400); POLYS 73.2 %; RBC 3.26 mil/uL (4.20-5.00); RDW-CV 14.4 % (10.5-14.5); WBC 2.3 thou/uL (4.0-11.0)
[2018-10-29 08:00] VITALS: BP 140/66
--- NOTE | 2018-10-29 10:24 | NUR ---
PT ALERT AND ORIENTED. TELE TRACKING NSR AND ALL VSS ON ROOM AIR. PT DENIES CP, SOA. PT STATES SHE IS LOOKING FORWARD TO DISCHARGE TODAY. EDUCATEDON SAFETY AND PLAN OF CARE. PLEASE SEE ASSESSMENT FOR ADDITIONAL INFORMATION. WILL CONTINUE TO MONITOR
[2018-10-29 12:00] VITALS: BP 133/67
[2018-10-29] MEDS ORDERED: CEFUROXIME500 MG PO (13:06)
[2018-10-29] MEDS ORDERED: AZITHROMYCIN 2250 MG PO (13:06)
[2018-10-29] MEDS ORDERED: PRENATAL PO (13:07)
[2018-10-29 14:28] VITALS: BP 140/66
== END 2018-10-29 14:52 | disposition home or self-care (01) | DRG 871 ==
LOC: M.ERS 18:24 → M.TBA-ER 19:51 → M.2W 19:51
PROVIDERS: Emergency Medicine; Family Medicine; Nurse Practitioner; ADMIT Internal Medicine
DX: A41.9 Sepsis, unspecified organism (principal); J15.9 Unspecified bacterial pneumonia; D61.818 Other pancytopenia; N18.3 Chronic kidney disease, stage 3 (moderate); K21.9 Gastro-esophageal reflux disease without esophagitis; E78.5 Hyperlipidemia, unspecified; F41.9 Anxiety disorder, unspecified; E61.1 Iron deficiency; I12.9 Hypertensive chronic kidney disease with stage 1 through stage 4 chronic kidney disease, or unspecified chronic kidney disease; F32.9 Major depressive disorder, single episode, unspecified; Z88.0 Allergy status to penicillin; Z88.8 Allergy status to other drugs, medicaments and biological substances; Z85.048 Personal history of other malignant neoplasm of rectum, rectosigmoid junction, and anus; Z92.21 Personal history of antineoplastic chemotherapy; Z92.3 Personal history of irradiation; Z79.82 Long term (current) use of aspirin; Z79.899 Other long term (current) drug therapy; Z85.038 Personal history of other malignant neoplasm of large intestine

== ENCOUNTER 2018-11-09 13:15 | Inpatient (IN) | payer OTHER ==
[~2018-11-09] VITALS: Ht 175.3 cm; Wt 50.8 kg
[~2018-11-09 13:15] MED LIST changes: +AZITHROMYCIN 2250 MG PO; +CEFUROXIME500 MG PO; +PRENATAL PO
[2018-11-09 13:22] VITALS: BP 154/67
[2018-11-09 13:37] LABS: HEMATOCRIT 35.6 % (37.0-47.0); HEMOGLOBIN 11.6 gm/dL (12.0-15.0); MCHC 32.7 g/dL (28.0-37.0); MCV 91.8 fL (80.0-100.0); MPV 7.1 fl. (7.2-11.1); NUCLEATED RBCS 0 /100WBC; PLATELET COUNT* 108 thou/uL (150-400); RBC 3.88 mil/uL (4.20-5.00); RDW-CV 14.2 % (10.5-14.5); WBC 5.1 thou/uL (4.0-11.0)
[2018-11-09 13:46] LABS: PROTIME 10.4 Seconds (9.20-11.50)
[2018-11-09 14:07] LABS: ABSOLUTE LYMPHOCYTES 0.1 thou/uL (0.8-5.3); ABSOLUTE MONOCYTES 0.3 thou/uL (0.0-1.2); ABSOLUTE NEUTROPHILS 4.7 thou/uL (1.6-8.1)
[2018-11-09 14:09] LABS: ANISOCYTOSIS 1+; PLATELET ESTIMATE DECREASED; POIKILOCYTOSIS 1+
[2018-11-09 14:10] LABS: ALKALINE PHOSPHATASE 90 U/L (46-116); ANION GAP 9 mmol/L (7-16); BUN 17 mg/dL (7-18); CALCIUM 9.1 mg/dL (8.5-10.1); CHLORIDE 101 mmol/L (98-107); CO2 26 mmol/L (21-32); GLUCOSE 103 mg/dL (70-99); NT-PRO BRAIN NAT PEPTIDE 659 pg/mL (<300); POTASSIUM 4.1 mmol/L (3.5-5.1); SGOT 28 U/L (15-37); SGPT 26 U/L (30-65); SODIUM 136 mmol/L (136-145); TOTAL BILIRUBIN 0.6 mg/dL (<0.1-1.0); TOTAL PROTEIN 7.7 g/dL (6.4-8.2); TROPONIN-I LEVEL <0.06 ng/mL (<0.06)
[2018-11-09 15:00] LABS: INFLUENZA B ANTIGEN None Detected (None Detect)
--- NOTE | 2018-11-09 16:10 | EKG ---
[place] [address] ELECTROCARDIOGRAM REPORT Name: NERIS ROBLES Room: [place] [address] ADM IN .R.#: [id number] Admission: 11/09/18 Attend Phys: Prasanna Mckeon MD Discharge: Date of : 30 Report #: [id number] THIS REPORT FOR: //name// [facility] ED Test Date: 2018-11-09 Test Time: 13:29:20 Pat Name: NERIS ROBLES Department: Room: [facility] Gender: F Clerical Warehouseman: : 1930 Requested By: John Lopez Order Number: [id number] MD: Murali Greene Measurements Intervals [place] Rate: 95 P: 73 MA: 164 QRS: 59 QRSD: 100 T: 60 QT: 340 QTc: 428 Interpretive Statements Sinus rhythm Compared to ECG 10/26/2018 18:58:05 No significant changes Electronically Signed On 11-09-2018 16:10:44 MEASUREMENT SUPERVISOR by Murali Greene [email or web address] <ELECTRONICALLY SIGNED> By: Murali Greene MD, [facility] 11/09/18 1610 1329 1329 Murali Greene MD, FACC /EPI
[2018-11-09 16:11] VITALS: BP 138/49
[2018-11-09 20:00] VITALS: BP 130/60
[2018-11-10] VITALS: BP 142/62
[2018-11-10 03:45] LABS: HEMATOCRIT 29.7 % (37.0-47.0); MCH 30.6 pg (26.0-34.0); MCHC 33.6 g/dL (28.0-37.0); MCV 91.1 fL (80.0-100.0); MPV 7.4 fl. (7.2-11.1); RBC 3.27 mil/uL (4.20-5.00); RDW-CV 14.3 % (10.5-14.5); WBC 4.9 thou/uL (4.0-11.0)
[2018-11-10 04:00] VITALS: BP 131/49
[2018-11-10 04:03] LABS: CALCIUM 8.9 mg/dL (8.5-10.1); CREATININE 1.1 mg/dL (0.6-1.3); MAGNESIUM 1.7 mg/dL (1.8-2.4); POTASSIUM 3.9 mmol/L (3.5-5.1)
[2018-11-10 07:40] VITALS: BP 141/48
[2018-11-10 12:10] VITALS: BP 120/43
[2018-11-10 18:11] VITALS: BP 156/76
[2018-11-10 20:00] VITALS: BP 135/41
[2018-11-11 00:29] VITALS: BP 131/51
[2018-11-11 03:31] VITALS: BP 120/50
--- NOTE | 2018-11-11 07:34 | CON ---
[address] [address] CONSULTATION Name: MARK ROBLESLASHAUNMONO BLAIR Room: [address] IN .R.#: [id number] Admission: 11/09/18 Attend Phys: Prasanna Mckeon MD Discharge: Date of : 30 Report #: [id number] THIS REPORT FOR: //name// CC: Prasanna Schulz DO DATE OF SERVICE: 11/10/2018 PULMONARY CONSULTATION PATIENT LOCATION: She is located in room 316. ATTENDING PHYSICIAN: Prasanna Mckeon M.D. PRIMARY CARE PHYSICIAN: Lon Schulz DO. INDICATION FOR CONSULTATION: Moderately severe COPD, chronic bronchitis, bronchiectasis and Pseudomonas on sputum. CLINICAL SUMMARY: The patient is an 87-year-old female, nonsmoker with chronic bronchitis for the past several years. The patient was just recently discharged on antibiotics for pneumonia in late October or early November of 2018 from [facility]. She went home on cefuroxime and supposedly was taking the medication. Prior to discharge on 10/28/2018 and 10/27/2018, sputum was collected. It showed a pansensitive Pseudomonas aeruginosa. The patient was just taking her breathing treatments just as needed at home. She is not on any oxygen at home. She has not been steroid dependent for her COPD in the past. She is chronically more short of breath, has difficulty going up a flight of stairs at home. She has some cough and some congestion. She thinks maybe once or twice a year, she has to use antibiotics for bronchitis and colds. She denies any esophageal reflux, although she has seen Dr. Dougherty several times and actually had one set of food bolus that had to be extracted. She has been dilated once in her esophagus also. Also denies any sinus drainage currently. Denies any frequent urinary tract infections. PAST MEDICAL HISTORY: She has had some osteoarthritis. She has had COPD and chronic bronchitis. She has had intermittent atrial fibrillation, Pseudomonas on her sputum. She has had frequent urinary tract infections, vertigo and weakness. ALLERGIES: SHE HAS ALLERGIES OR INTOLERANCES TO DIAZEPAM, WHICH GIVES HER NAUSEA, HEADACHE AND CONFUSION AND PENICILLIN, WHICH GIVES HER NAUSEA. OUTPATIENT MEDICATIONS: Reported as lisinopril 20 mg daily, [place] [address] CONSULTATION Name: NERIS ROBLES Room: [address]#: [id number] Admission: 11/09/18 Attend Phys: Prasanna Mckeon MD Discharge: Date of : 30 Report #: [id number] 20 mEq daily, atorvastatin 40 mg daily and aspirin 81 mg daily. The patient was also supposed to be on DuoNebs nebulizer treatments at home and albuterol inhaler and ProAir 2 puffs 4 times a day as needed. OTHER PAST MEDICAL HISTORY: Includes: 1. History of anorectal carcinoma in 2013, underwent chemo and radiation therapy. No evidence of recurrence. 2. Gastroesophageal reflux disease with some gastric ulcers. 3. In 2013, immunosuppression and nausea, vomiting, diarrhea with some pneumonia. 4. Hyperlipidemia. 5. Vertigo. 6. Hypertension. FAMILY HISTORY: Negative for premature cardiopulmonary disease. SOCIAL HISTORY: The patient is a remote smoker. She states smoked maybe 10-15 pack years; she quit 30-40 years ago. Denies alcohol or illicit drug use. REVIEW OF SYSTEMS: A 14-point review of systems reviewed and negative, except for pertinent positives noted in the HPI. PHYSICAL EXAMINATION: GENERAL: This is a pleasant, alert 87-year-old female, somewhat frail, but in no acute distress. VITAL SIGNS: Blood pressure is 120/53, heart rate 68, respirations 16, temperature is 36.9 degrees and room air sat is 94%. She is 5 feet 8 inches tall, weight 51 kilograms or 106 pounds and BMI is low at 16. HEENT: Nares and pharynx are relatively clear. Dentition is only fair; some carious teeth noted. NECK: Supple, without nodes. CHEST: Shows a few rhonchi with prolonged expiratory phase. No definite wheezing noted bilaterally. Thin chest wall is noted. CARDIOVASCULAR: Shows diminished heart tones, regular rate and rhythm. Heart rate 68. No murmur, gallop or rub. ABDOMEN: Soft, without masses or megaly. EXTREMITIES: No calf tenderness. No cyanosis, clubbing or edema. SKIN: Dry and intact. NEUROLOGIC: Nonfocal and moves all fours to commands. LABORATORY DATA: Laboratory from 11/10/2018, hemoglobin was 10, white count was 4900 and platelets were slightly low at 80,000, previously 108,000. Normal differential was noted, except for decreased lymphocyte count. Today, sodium is 135, potassium is 3.9, carbon dioxide is 26, BUN is 20, creatinine is 1.1 and glucose 142. Magnesium is 1.7. LFTs within normal limits. NT-proBNP slightly elevated at 659 and albumin was 4. Serology: Influenza A was positive and [address] [address] CONSULTATION Name: NERIS ROBLES Room: [address] IN [facility]#: [id number] Admission: 11/09/18 Attend Phys: Prasanna Mckeon MD Discharge: Date of : 30 Report #: [id number] influenza B was negative. MRSA was negative. Chest x-ray and CT chest shows COPD, hyperinflation and a lingular infiltrate and bronchiectatic changes and also right middle lobe bronchiectatic changes. Sputum from 10/27/2018 and 10/28/2018 shows Pseudomonas aeruginosa which is pansensitive to levofloxacin and also ciprofloxacin. MICs are less than 1 for both. Tobramycin also was sensitive. No PFTs on this patient at this time. She is on room air. IMPRESSION: 1. Chronic bronchitis and bronchiectasis. 2. Pseudomonas aeruginosa bronchitis, chronic infection. 3. Influenza A, on therapy. PLAN: Continue current medical regimen. She is on oral steroid taper. We will add oral and inhaled bronchodilators. She is on levofloxacin 750 mg p.o. daily. We would probably treat her for 10-14 days along with some probiotics so that she does not develop any C. difficile colitis. She needs to be a little bit more aggressive with her nebulizer treatments at home and use those twice to 4 times a day. She also needs to work on her incentive spirometer. She can only reach about 500 mL on her incentive spirometer and also work on her flutter valve. A Hill-Rom vest with vibrations for 20 minutes 3-4 times a day might be another option, but elderly frail patients sometimes can have rib fractures and rib contusions with the Hill-Rom vest, so need to tread lightly with that. I do not think she needs a bronchoscopy, at least at this time, but we will certainly rule out Mycobacterium Avium-Intracellulare infections and other predisposing infections. May need full PFTs in the future when she resolves. Other options would be to use ciprofloxacin at 250 mg or 500 mg a day for 2-4 weeks or even inhaled tobramycin, add once daily for suppressive therapy. Pseudomonas is very hard and difficult to eradicate. May need to check her immunoglobulins IgG, IgA, and IgM to make sure she is not immune deficient. She does have some pancytopenia with low white count and low platelets that may need to be worked up, whether she has some low level myelofibrosis syndrome at this time and possibly be immune suppressed. Thanks again for allowing us to participate in this lady's care. We will follow up along with you while she is in the hospital. <ELECTRONICALLY SIGNED> By: Nam Caraballo MD 11/11/18 0734 1424 [id number] Caraballo MD /nt
--- NOTE | 2018-11-11 07:55 | CON ---
[address] [address] CONSULTATION Name: NERIS ROBLES Room: [address] IN M.R.#: [id number] Admission: 11/09/18 Attend Phys: Prasanna Mckeon MD Discharge: Date of : 30 Report #: [id number] THIS REPORT FOR: //name// CC: Prasanna Schulz DATE OF SERVICE: 11/10/2018 INFECTIOUS DISEASE CONSULTATION ATTENDING PHYSICIAN: Prasanna Mckeon MD REASON FOR EVALUATION: Influenza A complicated by dyspnea, cough and fever. HISTORY OF PRESENT ILLNESS: Chart reviewed, patient examined. This is an 87-year-old woman with a history of colorectal carcinoma who has actually been hospitalized now for the third time this year primarily pulmonary related who was just discharged on 10/26 at that time felt to have pneumonitis, sputum culture with growth of Pseudomonas that was generally susceptible and also had urine culture with Citrobacter as well. She had been treated with parenteral therapy and switched to oral. She returned to the Emergency Room with complaints of above noted cough, fever and progressive shortness of breath for the 48 hours prior, apparently probable contact with a person with influenza A. She was evaluated and was found to have a positive influenza A antigen. X-ray showed some chronic changes as did CT, nothing acute with a normal white count and lactic acid of 1.0. Started empirically on combination therapy with cefepime, vancomycin and has had Tamiflu. At this point, she states she feels fairly well. She has not had significant temperature elevations, high being 99.6. She does have a persistent cough and feels weak. She is not currently on supplemental oxygen at this point. ALLERGIES: LISTED TO PENICILLINS. CURRENT MEDICATIONS: Include levofloxacin, vitamin, aspirin, atorvastatin, lisinopril, prednisone, vancomycin, oseltamivir, cefepime, ipratropium albuterol inhaler and hydrocodone. PAST MEDICAL HISTORY: As described above. Colorectal carcinoma, reflux, dyslipidemia, anxiety, vertigo, hypertension and depression. SOCIAL HISTORY: Former smoker. No ethanol and no illicit drug use. FAMILY HISTORY: Noncontributory. REVIEW OF SYSTEMS: Denies any significant gastrointestinal related complaints. She has not had recent fevers. Otherwise, a 10-point [place] [address] CONSULTATION Name: MARGARET,ARJRAETH BLAIR Room: [address]#: [id number] Admission: 11/09/18 Attend Phys: Prasanna Mckeon MD Discharge: Date of : 30 Report #: [id number] unremarkable with exception noted above in the history of present illness. PHYSICAL EXAMINATION: GENERAL: She appears her stated age, in mild distress at this point, likely mildly undernourished, somewhat chronically ill appearing. She is pleasant and cooperative. VITAL SIGNS: Temperature 98.4, pulse 68, respirations 18, blood pressure 120/43. SKIN: Warm and dry. HEENT: Normocephalic. Extraocular muscles are intact. NECK: Supple. LUNGS: Few scattered crackles at the bases. HEART: Regular, I do not appreciate a murmur. ABDOMEN: Soft, nontender and nondistended. There are no peritoneal signs. GENITOURINARY: Deferred. RECTAL: Deferred. LABORATORY DATA: Blood cultures sterile thus far. Electrolytes: Sodium 135, potassium 3.9, chloride 100, bicarbonate is 26, BUN and creatinine 20 and 1.1 and glucose of 142. Estimated GFR 47. CBC: White count of 4.9, H and H 10.0/29.7 and platelets of 80. CT of the chest showed no acute process. Influenza A antigen was positive. ASSESSMENT: Influenza in the setting of recent hospitalization, had isolation of Pseudomonas prior to this, although imaging studies do not suggest an acute process. I think it is reasonable to pare down therapy. I think the risk/benefits are probably outweighed by concern about adverse drug effects in this elderly lady. We will monitor expectantly. <ELECTRONICALLY SIGNED> By: Indio Kwong MD 11/11/18 0755 1521 [id number] Kwong MD /nt
[2018-11-11 09:30] VITALS: BP 114/48
[2018-11-11 12:00] VITALS: BP 117/47
[2018-11-11 16:00] VITALS: BP 129/48
[2018-11-12] VITALS: BP 111/50
[2018-11-12 04:23] LABS: ABSOLUTE LYMPHOCYTES 0.2 thou/uL (0.8-5.3); ABSOLUTE MONOCYTES 0.2 thou/uL (0.0-1.2); ABSOLUTE NEUTROPHILS 3.5 thou/uL (1.6-8.1); BASOPHILS 0.1 %; HEMATOCRIT 28.6 % (37.0-47.0); HEMOGLOBIN 9.4 gm/dL (12.0-15.0); LYMPHOCYTES 5.5 %; MCHC 32.8 g/dL (28.0-37.0); MCV 91.6 fL (80.0-100.0); MONOCYTES 6.1 %; MPV 7.7 fl. (7.2-11.1); NUCLEATED RBCS 0 /100WBC; PLATELET COUNT* 90 thou/uL (150-400); POLYS 88.3 %; RBC 3.12 mil/uL (4.20-5.00); RDW-CV 14.9 % (10.5-14.5)
[2018-11-12 04:34] VITALS: BP 112/50
[2018-11-12 04:46] LABS: CALCIUM 8.8 mg/dL (8.5-10.1); CREATININE 1.1 mg/dL (0.6-1.3); MAGNESIUM 2.1 mg/dL (1.8-2.4)
[2018-11-12 09:16] VITALS: BP 116/41
[2018-11-12 16:19] VITALS: BP 121/56
[2018-11-13 01:18] VITALS: BP 157/60
[2018-11-13 10:20] VITALS: BP 139/58
[2018-11-13 17:23] VITALS: BP 133/50
[2018-11-14] VITALS: BP 142/63
[2018-11-14 04:00] VITALS: BP 141/72
[2018-11-14 08:10] VITALS: BP 141/69
[2018-11-14 12:13] VITALS: BP 139/49
[2018-11-14 15:44] VITALS: BP 131/73
[2018-11-14 21:15] VITALS: BP 136/53
[2018-11-15 04:59] LABS: HEMATOCRIT 29.1 % (37.0-47.0); HEMOGLOBIN 9.7 gm/dL (12.0-15.0); MCH 30.2 pg (26.0-34.0); MCHC 33.4 g/dL (28.0-37.0); MCV 90.5 fL (80.0-100.0); RBC 3.21 mil/uL (4.20-5.00); WBC 3.8 thou/uL (4.0-11.0)
[2018-11-15 05:17] LABS: CALCIUM 9.4 mg/dL (8.5-10.1); CREATININE 1.1 mg/dL (0.6-1.3); MAGNESIUM 2.2 mg/dL (1.8-2.4); POTASSIUM 4.8 mmol/L (3.5-5.1)
[2018-11-15 08:10] VITALS: BP 138/56
[2018-11-15 12:20] VITALS: BP 124/52
[2018-11-15 17:25] VITALS: BP 132/54
[2018-11-15 20:00] VITALS: BP 144/60
[2018-11-16 00:47] VITALS: BP 144/55
[2018-11-16] MEDS ORDERED: MUCINEX600 MG PO (09:30)
[2018-11-16] MEDS ORDERED: ACIDOPHILUS1 EAC4 PO (09:30)
[2018-11-16] MEDS ORDERED: SINGULAIR 10 MG10 M1 PO (09:30)
[2018-11-16] MEDS ORDERED: LEVAQUIN 750 M750 MG PO (09:30)
[2018-11-16] MEDS ORDERED: BENZONATATE100 MG PO (09:30)
[2018-11-16] MEDS ORDERED: PREDNISONE 10 M10 MG PO (09:30)
[2018-11-16 11:26] VITALS: BP 133/63
[2018-11-16 12:00] VITALS: BP 126/49
[2018-11-16 12:10] VITALS: BP 133/63
[2018-11-16 12:13] VITALS: BP 133/63
[2018-11-16 13:16] VITALS: BP 133/63
== END 2018-11-16 13:25 | disposition home or self-care (01) | DRG 871 ==
LOC: M.ERS 13:15 → M.3W 14:38 → M.TBA-ER 14:38 → M.3W 16:18
PROVIDERS: Family Medicine; ADMIT Internal Medicine
DX: A41.9 Sepsis, unspecified organism (principal); J15.1 Pneumonia due to Pseudomonas; J10.08 Influenza due to other identified influenza virus with other specified pneumonia; D61.818 Other pancytopenia; J44.0 Chronic obstructive pulmonary disease with (acute) lower respiratory infection; J44.1 Chronic obstructive pulmonary disease with (acute) exacerbation; I10 Essential (primary) hypertension; E78.5 Hyperlipidemia, unspecified; K21.9 Gastro-esophageal reflux disease without esophagitis; F32.9 Major depressive disorder, single episode, unspecified; M19.90 Unspecified osteoarthritis, unspecified site; F41.1 Generalized anxiety disorder; I48.91 Unspecified atrial fibrillation; K25.9 Gastric ulcer, unspecified as acute or chronic, without hemorrhage or perforation; Z87.891 Personal history of nicotine dependence; Z85.048 Personal history of other malignant neoplasm of rectum, rectosigmoid junction, and anus; Z92.21 Personal history of antineoplastic chemotherapy; Z92.3 Personal history of irradiation; Z79.82 Long term (current) use of aspirin; Z79.899 Other long term (current) drug therapy; Z88.0 Allergy status to penicillin; Z88.8 Allergy status to other drugs, medicaments and biological substances

== ENCOUNTER 2018-12-02 11:54 | Inpatient (IN) | payer OTHER ==
[~2018-12-02] VITALS: Ht 172.7 cm; Wt 53.1 kg
[~2018-12-02 11:54] MED LIST changes: +ACIDOPHILUS1 EAC4 PO; +BENZONATATE100 MG PO; +LEVAQUIN 750 M750 MG PO; +MUCINEX600 MG PO; +PREDNISONE 10 M10 MG PO; +SINGULAIR 10 MG10 M1 PO
[2018-12-02 12:09] VITALS: BP 140/47
[2018-12-02 13:07] LABS: ABSOLUTE LYMPHOCYTES 0.4 thou/uL (0.8-5.3); ABSOLUTE MONOCYTES 0.3 thou/uL (0.0-1.2); ABSOLUTE NEUTROPHILS 2.3 thou/uL (1.6-8.1); BASOPHILS 0.4 %; EOSINOPHILS 0.7 %; HEMATOCRIT 35.3 % (37.0-47.0); HEMOGLOBIN 11.6 gm/dL (12.0-15.0); LYMPHOCYTES 12.8 %; MCH 30.4 pg (26.0-34.0); MCHC 32.9 g/dL (28.0-37.0); MCV 92.3 fL (80.0-100.0); MONOCYTES 8.8 %; MPV 7.7 fl. (7.2-11.1); NUCLEATED RBCS 0 /100WBC; PLATELET COUNT* 90 thou/uL (150-400); POLYS 77.3 %; RBC 3.82 mil/uL (4.20-5.00); RDW-CV 15.2 % (10.5-14.5)
[2018-12-02 13:20] LABS: ALBUMIN 3.4 g/dL (3.4-5.0); ALKALINE PHOSPHATASE 77 U/L (46-116); ANION GAP 11 mmol/L (7-16); BUN 25 mg/dL (7-18); CALCIUM 9.1 mg/dL (8.5-10.1); CHLORIDE 106 mmol/L (98-107); CO2 27 mmol/L (21-32); CREATININE 1.1 mg/dL (0.6-1.3); GLUCOSE 98 mg/dL (70-99); POTASSIUM 4.1 mmol/L (3.5-5.1); SGOT 24 U/L (15-37); SGPT 25 U/L (30-65); SODIUM 144 mmol/L (136-145); TOTAL BILIRUBIN 0.6 mg/dL (<0.1-1.0); TOTAL PROTEIN 7.3 g/dL (6.4-8.2); TROPONIN-I LEVEL <0.06 ng/mL (<0.06)
--- NOTE | 2018-12-02 16:34 | EKG ---
[place] [address] ELECTROCARDIOGRAM REPORT Name: NERIS ROBLES Room: [place] [address] ADM IN .R.#: [id number] Admission: 12/02/18 Attend Phys: Eileen Slade Discharge: Date of : 30 Report #: [id number] THIS REPORT FOR: //name// [facility] ED Test Date: 2018-12-02 Test Time: 12:32:37 Pat Name: NERIS ROBLES Department: Room: [facility] Gender: F [employer]er: LAUREN : 1930 Requested By: Mayela Santana Order Number: [id number] MD: Salvador Leblanc Measurements Intervals [place] Rate: 74 P: 72 [place]: 176 QRS: 47 QRSD: 96 T: 57 QT: 409 QTc: 454 Interpretive Statements Sinus rhythm Ventricular premature complex Compared to ECG 11/09/2018 13:29:20 Ventricular premature complex(es) now present Electronically Signed On 12-02-2018 16:34:01 CDT by Salvador Leblanc [email or web address] <ELECTRONICALLY SIGNED> By: Salvador Leblanc MD, FACC 12/02/18 1634 1232 1232 Salvador Leblanc MD, [facility] /EPI
[2018-12-02 18:31] VITALS: BP 122/44
[2018-12-02 18:52] VITALS: BP 131/53
[2018-12-02 20:00] VITALS: BP 132/48
[2018-12-03] VITALS: BP 142/57
[2018-12-03 00:24] LABS: URINE BILIRUBIN NEGATIVE (Negative); URINE BLOOD NEGATIVE (Negative); URINE CLARITY CLEAR; URINE COLOR YELLOW; URINE GLUCOSE-RANDOM NEGATIVE (Negative); URINE KETONES TRACE (Negative); URINE LEUKOCYTES-REFLEX NEGATIVE (Negative); URINE NITRITE-REFLEX NEGATIVE (Negative); URINE PROTEIN NEGATIVE (Negative); URINE UROBILINOGEN 0.2 E.U./dl (0.2-1.0)
[2018-12-03 04:00] VITALS: BP 132/57
[2018-12-03 05:07] LABS: ABSOLUTE LYMPHOCYTES 0.3 thou/uL (0.8-5.3); ABSOLUTE MONOCYTES 0.3 thou/uL (0.0-1.2); ABSOLUTE NEUTROPHILS 1.9 thou/uL (1.6-8.1); BASOPHILS 0.4 %; EOSINOPHILS 0.8 %; HEMATOCRIT 28.6 % (37.0-47.0); LYMPHOCYTES 12.4 %; MCH 30.2 pg (26.0-34.0); MCHC 33.2 g/dL (28.0-37.0); MCV 91.2 fL (80.0-100.0); MONOCYTES 12.5 %; MPV 7.9 fl. (7.2-11.1); NUCLEATED RBCS 0 /100WBC; PLATELET COUNT* 71 thou/uL (150-400); POLYS 73.9 %; RBC 3.14 mil/uL (4.20-5.00); RDW-CV 14.9 % (10.5-14.5); WBC 2.6 thou/uL (4.0-11.0)
[2018-12-03 05:23] LABS: ALBUMIN 2.8 g/dL (3.4-5.0); CALCIUM 8.8 mg/dL (8.5-10.1); CREATININE 1.1 mg/dL (0.6-1.3); POTASSIUM 4.2 mmol/L (3.5-5.1); TOTAL BILIRUBIN 0.5 mg/dL (<0.1-1.0); TOTAL PROTEIN 6.1 g/dL (6.4-8.2)
--- NOTE | 2018-12-03 05:34 | NUR ---
ASSUMED CARE OF PT AFTER REPORT AT 1930. PT A&OX4. VSS. ADMISSION HISTORY & PHYSICAL ASSESSMENT COMPLETED AND CHARTED. PT ON RA WITH 93% O2 SAT. PT ON MEDSURG STATUS. PT UPADLIB TO RESTROOM. DENIES ANY PAIN OR SOA. URINE SPECIMEN SENT TO LAB. PT RESTED WELL ON BED. MAINTAINED ON ISOLATION PRECAUTION. CALL LIGHT WITHIN REACH.
[2018-12-03 05:35] LABS: HEMOGLOBIN 9.5 gm/dL (12.0-15.0)
[2018-12-03 08:00] VITALS: BP 130/65
[2018-12-03 12:15] VITALS: BP 139/57
--- NOTE | 2018-12-03 14:18 | NUR ---
PT A/O. MED SURG STATUS AND ALL VSS ON ROOM AIR. DENIES CP, SOA. STATES SHE HAD PREDUCTIVE "FOAMY COUGH" LAST NIGHT, BUT NOT PRODUCING ANY SPUTUM TODAY. PT SITTING UP IN BED MOST OF SHIFT, FAMILY AT BEDSIDE. EDUCATED ON SAFETY AND PLAN OF CARE. PLEASE SEE ASSESSMENT FOR ADDITIONAL INFORMATION. WILL CONTINUE TO MONITOR
--- NOTE | 2018-12-03 14:30 | NUR ---
INITIAL ASSESSMENT: Pt evaluated for d/c planning needs. Reviewed chart. Pt was hospitalized at [facility] in September 2018, October 2018 and earlier this month. Pt lives in house with daughter and was independent with ADL's prior to admission. Pt has walker and w/c at home. Pt had home health in 2012, but not recently. Pt is hopeful to return home on d/c from hospital. Will remain available to assist as needed.
[2018-12-03 16:30] VITALS: BP 113/56
[2018-12-03 20:00] VITALS: BP 139/59
[2018-12-04] VITALS: BP 123/53
[2018-12-04 04:41] LABS: ABSOLUTE LYMPHOCYTES 0.3 thou/uL (0.8-5.3); ABSOLUTE MONOCYTES 0.4 thou/uL (0.0-1.2); ABSOLUTE NEUTROPHILS 1.9 thou/uL (1.6-8.1); BASOPHILS 0.2 %; EOSINOPHILS 1.4 %; HEMATOCRIT 28.6 % (37.0-47.0); HEMOGLOBIN 9.4 gm/dL (12.0-15.0); LYMPHOCYTES 12.1 %; MCH 30.2 pg (26.0-34.0); MCHC 32.8 g/dL (28.0-37.0); MCV 92.1 fL (80.0-100.0); MONOCYTES 14.7 %; MPV 7.5 fl. (7.2-11.1); NUCLEATED RBCS 0 /100WBC; PLATELET COUNT* 75 thou/uL (150-400); POLYS 71.6 %; RBC 3.11 mil/uL (4.20-5.00); RDW-CV 15.4 % (10.5-14.5); WBC 2.7 thou/uL (4.0-11.0)
--- NOTE | 2018-12-04 05:22 | NUR ---
ASSUMED CARE OF PT AFTER REPORT AT 1930. PT A&OX4. VSS. PHYSICAL ASSESSMENT COMPLETED AND CHARTED. PT ON RA WITH 92% O2 SAT. PT ON MEDSURG STATUS. PT UP ADLIB TO RESTROOM. PT DENIES ANY PAIN OR DOA. SPUTUM CULTURE SENT TO LAB. PT REQUESTED FOR A SLEEPING PILL- DR PAUL INFORMED WITH NEW ORDERS. MAINTAINED ON ISOLATION PRECAUTION. CALL LIGHT WITHIN REACH.
[2018-12-04 08:00] VITALS: BP 141/61
--- NOTE | 2018-12-04 14:22 | CON ---
[address] [address] CONSULTATION Name: NERIS ROBLES Room: [address] IN M.R.#: [id number] Admission: 12/02/18 Attend Phys: Eileen Slade Discharge: Date of : 30 Report #: [id number] THIS REPORT FOR: //name// CC: Lon Rowland DATE OF SERVICE: 12/03/2018 CONSULTATION: Infectious Diseases. HISTORY OF PRESENT ILLNESS: Neris Robles is an 88-year-old white female who comes to the hospital with increased cough with white cottony sputum, weakness and more dyspnea. The patient was hospitalized 11/09/2018-11/16/2018 with similar symptoms. At that time, she was diagnosed with pseudomonas and influenza, treated with Levaquin and Tamiflu. She was discharged on Levaquin. At that time, the CT scan showed scarring in the lungs, but no infiltrates. Her Pseudomonas was described as mucoid strain susceptible to all the usual antibiotics. Dr. Rowland tells me that he heard an oral report that the lab is growing positive acid-fast from the previous hospitalization, but I cannot find any documentation in the chart. We did call the microbiology and there was no answer on the telephone. PAST MEDICAL HISTORY: Significant for cancer of the anus and COPD. ALLERGIES: THE PATIENT HAS A HISTORY OF PENICILLIN ALLERGY. SOCIAL HISTORY: The patient is . She lives with her daughter. She used to work running and opening restaurants. She smoked a minimal amount, having quit at age 26. No history of alcohol or drugs. REVIEW OF SYSTEMS: The patient denies fevers, chills, sweats. She does have the weakness and malaise. The patient denies any weight loss. The patient denies any headache, sinus congestion, sore throat, trouble swallowing. The patient notes a cough with white sputum and increased dyspnea with shortness of breath. The patient denies any chest pain, syncope, palpitations. The patient denies nausea, vomiting, diarrhea, constipation, abdominal pain. No urinary complaints. No pain with her extremities. Regarding TB history: The patient has no history of tuberculosis. She has not known anyone with tuberculosis. She denies any high risk environment such as spending much time overseas, [place], mental institutions, or prisons. To her knowledge, she has never had TB skin testing in the past. She denies any hemoptysis or night sweats. She says her weight is stable. PHYSICAL EXAMINATION: GENERAL: The patient appears chronically ill, but comfortable, [place] [id number] CONSULTATION Name: NERIS ROBLES Room: [address] IN ..#: [id number] Admission: 12/02/18 Attend Phys: Eileen Slade Discharge: Date of : 30 Report #: [id number]. VITAL SIGNS: Show no fever. SKIN: Sallow without rash, lesion or exanthem. ENT: Negative. NEUROLOGIC: The patient is awake, alert and cogent. HEART: Sounds S1, S2. CHEST: Breath sounds are diminished, but clear. The patient was not dyspneic. Voice quality was normal. ABDOMEN: Belly was thin, soft, nontender. EXTREMITIES: Unremarkable. LABORATORY DATA: White count is 2.6, hemoglobin 9.5, hematocrit 28.6, platelets 71,000. This is significantly different from when she was hospitalized 3 weeks ago. At that time on 11/09/2018, she had white count of 5.1, hemoglobin 11.6, platelets 108,000. Electrolytes are normal. BUN 22, creatinine 1.1. Liver function tests are normal. Albumin was normal. Chest x-ray shows possible new left lower lobe infiltrate. IMPRESSION: 1. Possible new infiltrate with symptoms of cough and dyspnea. Recent tests have demonstrated sensitive Pseudomonas treated with 17 days of appropriate antibiotics and influenza, treated with appropriate antiviral. In addition, there is a verbal report of a positive acid-fast which I cannot confirm. At this time, I concur with the choice of cefepime to treat the Pseudomonas from the last culture. There is no value of additional influenza treatment. The patient will require respiratory isolation for TB until we get further information. I would like to order additional sputum for culture for both routine and acid-fast organisms. We can do a TB skin test and a QuantiFERON test, which could be started on Wednesday. We want to continue respiratory therapy and supportive therapy. I suspect the pancytopenia is probably an adverse drug reaction, possibly from the Levaquin; although, she did become more pancytopenic when she was hospitalized last time from 11/09/2018-11/15/2018. I appreciate the opportunity of input in the care of this pleasant patient. I will continue to follow through the weekend until Dr. Kwong returns on Wednesday. Thank you for this consultation. <ELECTRONICALLY SIGNED> By: Murali Encarnacion MD 12/04/18 1422 [id number] Encarnacion MD /nt
[2018-12-04 16:00] VITALS: BP 126/61
--- NOTE | 2018-12-04 17:27 | NUR ---
PT REMIANED A&Ox4 THROUGHOUT SHIFT. VITALS STABLE. UP AD JOSÉ LUIS IN ROOM. IV IN R AC PATENT, SL. AIRBORNE PRECAUTIONS MAINTAINED. DENIED PAIN. DENIED NAUSEA. CALL LIGHT WITHIN REACH. WILL CONTINUE TO MONITOR.
[2018-12-04 20:00] VITALS: BP 133/63
[2018-12-05 04:00] VITALS: BP 129/52
[2018-12-05 05:28] LABS: ABSOLUTE LYMPHOCYTES 0.4 thou/uL (0.8-5.3); ABSOLUTE MONOCYTES 0.3 thou/uL (0.0-1.2); ABSOLUTE NEUTROPHILS 2.2 thou/uL (1.6-8.1); BASOPHILS 0.1 %; EOSINOPHILS 1.1 %; HEMOGLOBIN 9.7 gm/dL (12.0-15.0); LYMPHOCYTES 12.2 %; MCH 29.9 pg (26.0-34.0); MCHC 32.2 g/dL (28.0-37.0); MCV 93.1 fL (80.0-100.0); MONOCYTES 10.4 %; MPV 7.5 fl. (7.2-11.1); NUCLEATED RBCS 0 /100WBC; PLATELET COUNT* 82 thou/uL (150-400); POLYS 76.2 %; RBC 3.23 mil/uL (4.20-5.00); RDW-CV 15.6 % (10.5-14.5); WBC 2.9 thou/uL (4.0-11.0)
--- NOTE | 2018-12-05 05:39 | NUR ---
ASSUMED CARE OF PT AFTER REPORT AT 1930. PT A&OX4. VSS. PHYSICAL ASSESSMENT COMPLETED AND CHARTED. PT ON RA WITH 94% O2 SAT. PT ON MEDSURG STATUS. PT DENIES ANY PAIN OR SOA. PT 48 HOUR PPD TEST WILL BE DUE TONIGHT AT 2039. PT RESTED WELL ON BED. HOURLY ROUDNING OBSERVED. CALL LIGHT WITH REACH.
[2018-12-05 06:20] LABS: ALBUMIN 2.8 g/dL (3.4-5.0); CALCIUM 8.9 mg/dL (8.5-10.1); TOTAL BILIRUBIN 0.4 mg/dL (<0.1-1.0); TOTAL PROTEIN 6.2 g/dL (6.4-8.2)
[2018-12-05 08:00] VITALS: BP 126/52
--- NOTE | 2018-12-05 11:21 | NUR ---
ASSUMED PT CARE REPORT RECEIVED FROM NURSE OT IS AOX4 ON MEDSURG STATUS. ON RA AND SATURATIN IS 97%. ON AIRBORNE ISOLATION FOR PENDING TB RESULT. IV CEFEPIME GIVEN. PT HAS NO NEW COMPLAINT. DENIES N.V, PAIN. ID DOCTOR SAW PT IN ROOM. CALL LIGHT AT REACH. ISOLATION MAINTAINED. WILL CONTINUE TO MONITOR PT
--- NOTE | 2018-12-05 12:16 | NUR ---
NUTRITION: PT ASSESSED FOR LOW BMI. WT IS USUALLY ~115-120#. CURRENT WT: 118#. PT IS TOLERATING DIET WELL. H/O ANAL CANCER/CHEMO/RAD, GERD. ALB 2.8, PREALB 19.2. CONSIDER MILD TO LOW RISK.
[2018-12-05 13:05] VITALS: BP 145/64
[2018-12-05 15:15] VITALS: BP 141/64
--- NOTE | 2018-12-05 18:09 | NUR ---
PT HAS 3 EPISODES OF DIARRHEA. AND HAS NEW ONSET STOMACH PAIN AFTER LUNCH. ZOFRAN ORDER RECEIVED FROM WILL GIVE TO PT. DR ALSO MADE AWARE OF DIARRHEA.
[2018-12-05 20:15] VITALS: BP 139/60
--- NOTE | 2018-12-06 06:08 | NUR ---
RECEIVED REPORT AND ASSUMED CARE AT 1900. VSS. PT DENIES COMPLAINTS OF PAIN. ASSESSMENT COMPLETED CHARTED. AIRBORN ISOLATION MAINTAINED. DISCUSSED PLAN OF CARE WITH PT, VERBALIZED UNDERSTANDING. PT UP AD JOSÉ LUIS, ON RA. BED LOCKED IN LOWEST POSITION, CALL LIGHT WITHIN REACH. HOURLY ROUNDING COMPLETED AND ALL NEEDS MET.
[2018-12-06 08:00] VITALS: BP 129/56
[2018-12-06 11:58] VITALS: BP 131/54
--- NOTE | 2018-12-06 18:41 | NUR ---
patinet resting in bed. up ad ileana in room. awaiting quaniferon gold testing for tb. vitals signs stable and patient in noAPParent signs of distress. r ac iv. lungs clear over dininished. 2+ pulses radial, pt, dp. kp pollard competed for patinet safety.
[2018-12-06 20:00] VITALS: BP 136/63
--- NOTE | 2018-12-07 01:58 | NUR ---
ASSUMED PT CARE AT APPROX 1930. PT IS AWAKE AND ORIENTED X4. VSS ON ROOM AIR. NOT IN DISTRESS, DENIES PAIN AND DISCOMFORT. STILL AWAITING QUANTIFERON GOLD TEST RESULT. CALL LIGHT WITHIN REACH. HOURLY ROUNDING DONE FOR PT SAFETY.
[2018-12-07 08:00] VITALS: BP 140/56
[2018-12-07 11:31] VITALS: BP 127/51
--- NOTE | 2018-12-07 18:12 | NUR ---
pt progressing toward goals. was on isolations but taken off due to results being communicated to RN by Dr Kwong. pt educated on the plan. she deniespain, VSS, M/S, RA, clear lungs, coughing up small amount of frothy sputume. pt uses call light approprialty for needs. fall precautions in place. will continue to monitor.
[2018-12-07 20:00] VITALS: BP 130/65
[2018-12-08 04:00] VITALS: BP 122/65
[2018-12-08 05:12] LABS: HEMOGLOBIN 9.6 gm/dL (12.0-15.0); MCH 30.8 pg (26.0-34.0); MCHC 33.2 g/dL (28.0-37.0); MCV 92.8 fL (80.0-100.0); MPV 6.9 fl. (7.2-11.1); RBC 3.13 mil/uL (4.20-5.00); RDW-CV 15.4 % (10.5-14.5); WBC 2.8 thou/uL (4.0-11.0)
[2018-12-08 05:20] LABS: CREATININE 0.9 mg/dL (0.6-1.3); MAGNESIUM 1.9 mg/dL (1.8-2.4); POTASSIUM 4.1 mmol/L (3.5-5.1)
--- NOTE | 2018-12-08 05:51 | NUR ---
ASSUMED CARE OF PT AFTER REPORT AT 1930. PT A&OX4. VSS. PHYSICAL ASSESSMENT COMPLETED AND CHARTED. PT ON RA WITH 95% O2 SAT. PT ON MEDSURG STATUS. PT UPADLIB TO RESTROOM. PT DENIES ANY PAIN OR DISCOMFORT. NO EPISODE OF DIARRHEA TONIGHT. PT RESTED WELL ON BED. HOURLY ROUNDING OBSERVED. CALL LIGHT WITHIN REACH.
[2018-12-08 08:00] VITALS: BP 127/57
--- NOTE | 2018-12-08 08:34 | NUR ---
ASSUMED PT CARE AT 0730, FULL ASSESMENT DONE CHARTED. PT A/O X4, STATES SHE SLEPT WELL, FEELS READY TO GO HOME. REPORTS STILL COUGHING UP SPUTUME, BM ON 12/06/18, VSS, M/S, UP AD JOSÉ LUIS, RA. WILL CONTINUE WITH PLAN OF CARE
[2018-12-08 17:18] VITALS: BP 126/65
[2018-12-08 20:00] VITALS: BP 123/61
--- NOTE | 2018-12-08 20:00 | NUR ---
RECEIVED REPORT AND ASSUMED CARE OF PT, ASSESSMENT COMPLETED. OCC USING FLUTTER VALVE AND HER OWN. NO COMPLAINTS VOICED. WILL CONT TO MONITOR AND ASSIST NEEDED.
--- NOTE | 2018-12-08 20:17 | NUR ---
PT PROGRESSING TOWARD GOALS. WAS TO DISCHARGE TODAY BUT STATES THAT HER DAUGHTER IS UNABLE TO BE THERE TODAY TO HELP HER WHEN SHE GETS HOME SO SHE WOULD PREFER TO GO HOME TOMORROW. NOTIIED AND OK WITH THE PLAN. PT C/O DUKE THIS EVENING, MEDS GIVEN PER NOV. VSS, M/S, UP AD JOSÉ LUIS, COMMUNICATES NEEDS APPROPRIALY. REPORT GIVEN TO SURESH LUI
[2018-12-09] VITALS: BP 128/57
--- NOTE | 2018-12-09 06:03 | NUR ---
SLEPT WELL TONIGHT. UP AD JOSÉ LUIS WITH STEADY GAIT. NO CHANGE IN ASSESSMENT. GOALS OF REST AND SAFETY ACHIEVED. HOURLY ROUNDING OBSERVED.
[2018-12-09 08:11] VITALS: BP 127/54
--- NOTE | 2018-12-09 09:00 | NUR ---
REC'D REPORT FROM NOC RN, ASSUMED CARE OF PATIENT APPROX 0730. A&OX4, ABLE TO COMMUNICATE NEEDS TO STAFF. MED/SURG STATUS. ASSESSMENT COMPLETE, VS OBTAINED. O2 SATS >92%. UP AD JOSÉ LUIS IN ROOM WITH STEADY GAIT. CALL LIGHT WITHIN REACH.
--- NOTE | 2018-12-09 11:15 | CON ---
[address] [address] CONSULTATION Name: NERIS ROBLES Room: [address] IN M.R.#: [id number] Admission: 12/02/18 Attend Phys: Eileen Slade Discharge: Date of : 30 Report #: [id number] THIS REPORT FOR: //name// CC: Lon Rowland DATE OF SERVICE: 12/08/2018 NEW PATIENT EVALUATION REASON FOR EVALUATION: History of chronic cough, recent pneumonia. HISTORY OF PRESENT ILLNESS: The patient is a pleasant 88-year-old woman with history of a chronic cough. She was recently hospitalized 2 weeks ago for pneumonia with influenza A and sputum showed mucoid pseudomonas. At that time, she was treated with Levaquin. She came back with worsening cough and weakness, had vomiting. She denies any chest pain at this time. Her cough is better. She had shortness of breath on [id number]-[id number] exertion. However, before her pneumonia, was able to work in her yard without difficulty. Denies any wheezing. Denies fever or chills. PAST MEDICAL HISTORY: History of reflux disease, dyslipidemia, anxiety, hypertension, depression and pneumonia recently with influenza. PAST SURGICAL HISTORY: In 2012, had colon cancer. The patient had chemo. It was cancer. MEDICATIONS: Reviewed as in the chart. The patient was discharged on Levaquin at home. SOCIAL HISTORY: No significant smoking. No alcohol abuse. REVIEW OF SYSTEMS: A 14-point review of systems is reviewed and noted as above. Otherwise, no fever, no chills, no night sweats. Cough is improving. No chest pain. PHYSICAL EXAMINATION: GENERAL: The patient is pleasant, not in distress. VITAL SIGNS: Stable. Pulse rate is 84. She is afebrile since admission. Her T-max was 36.7. Blood pressure 127/57. HEAD AND NECK: Neck is supple. Mucous membranes are clear. CHEST: Clear to auscultation. No wheezing. CARDIOVASCULAR: Regular rate and rhythm. ABDOMEN: Soft, nontender. EXTREMITIES: No [place] [address] CONSULTATION Name: NERIS ROBLESAINE Room: [address] IN [facility]#: [id number] Admission: 12/02/18 Attend Phys: Eileen Slade Discharge: Date of : 30 Report #: [id number] LABORATORY AND OTHER DATABASE: Her white blood cell count 2.8; on admission, it was 3. Hemoglobin 9.6. Her chemistry was within normal. A chest CT, which I have reviewed, was done in previous admission on 11/09/2018, showed a right middle lobe and inferior lingular interstitial process, with mild bronchiectasis with small micronodules. Chest x-ray from this admission, last 12/04/2018, showed left lower lobe and right mid lung minimal infiltrates, slightly increased in the left base. ASSESSMENT AND PLAN: 1. 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 For treatment, she had chronic cough before her pneumonia. If she commits to treatment, the patient will need to be committed for several months and likely years of treatment. Discussed with the patient. She understands and will defer treatment to Infectious Disease specialist. At this time, recommend followup chest CT in 6 months after treatment and follow up with Pulmonary. This was discussed with the patient, her daughter and her nurse. 2. Bronchiectasis in the middle lobe and lingula. Recommend bronchodilator treatment with ProAir. Recommend a flutter valve, discussed with the patient as well, to improve clearance. Recommend to wean steroids. Multiple antibiotics likely will be needed as there is high incidence of resistance with Mycobacterium. This is considering suspicion for Mycobacterium avium. We will defer antibiotic treatment to Dr. Indio Kwong. Other testing is pending at this time. Likely will need followup sputum analysis to confirm improvement and resolution of her mycobacterial infection. <ELECTRONICALLY SIGNED> By: Nataliya Hyde MD 12/09/18 1115 [id number] oLs Hyde MD /nt
[2018-12-09] MEDS ORDERED: LEVAQUIN 500 M500 M2 PO (11:29)
[2018-12-09 11:32] VITALS: BP 127/54
--- NOTE | 2018-12-09 13:00 | NUR ---
PT WITH COMPLETE DC ORDER. REVIEWED DC INSTRUCTIONS AND MEDICATION LIST WITH PATIENT AND DAUGHTER. ANSWERED ALL QUESTIONS TO PATIENT SATISFACTION. PATIENT WITH NO IV OR JOURNALISTS AND OTHER WRITERS TO DISCONTINUE. PATIENT IN POSSESSION OF ALL BELONGINGS. LEFT UNIT APPROX 1255 VIA WC AND NURSING STAFF. FAMILY MEMBER TO TRANSPORT PATIENT HOME IN PERSONAL VEHICLE.
== END 2018-12-09 13:20 | disposition home or self-care (01) | DRG 177 ==
LOC: M.ERS 11:54 → M.TBA-ER 14:00 → M.2W 14:00
PROVIDERS: Emergency Medicine; Internal Medicine; Nurse Practitioner Family; ADMIT Internal Medicine
DX: A31.0 Pulmonary mycobacterial infection (principal); E43 Unspecified severe protein-calorie malnutrition; D61.818 Other pancytopenia; Z68.1 Body mass index [BMI] 19.9 or less, adult; K21.9 Gastro-esophageal reflux disease without esophagitis; E78.5 Hyperlipidemia, unspecified; F41.1 Generalized anxiety disorder; F32.9 Major depressive disorder, single episode, unspecified; J47.9 Bronchiectasis, uncomplicated; N18.3 Chronic kidney disease, stage 3 (moderate); G47.00 Insomnia, unspecified; I12.9 Hypertensive chronic kidney disease with stage 1 through stage 4 chronic kidney disease, or unspecified chronic kidney disease; Z85.048 Personal history of other malignant neoplasm of rectum, rectosigmoid junction, and anus; Z92.21 Personal history of antineoplastic chemotherapy; Z92.3 Personal history of irradiation; Z88.0 Allergy status to penicillin; Z88.8 Allergy status to other drugs, medicaments and biological substances; Z87.891 Personal history of nicotine dependence; Z79.899 Other long term (current) drug therapy

== ENCOUNTER 2020-08-21 11:24 | Emergency (ER) | payer OTHER ==
[~2020-08-21] VITALS: Ht 172.7 cm; Wt 61.2 kg
[~2020-08-21 11:24] MED LIST changes: +LEVAQUIN 500 M500 M2 PO
[2020-08-21 12:24] LABS: ABSOLUTE LYMPHOCYTES 0.3 thou/uL (0.8-5.3); ABSOLUTE MONOCYTES 0.2 thou/uL (0.0-1.2); ABSOLUTE NEUTROPHILS 1.9 thou/uL (1.6-8.1); BASOPHILS 0.4 %; HEMATOCRIT 33.7 % (37.0-47.0); HEMOGLOBIN 11.2 gm/dL (12.0-15.0); LYMPHOCYTES 12.2 %; MCH 31.3 pg (26.0-34.0); MCHC 33.4 g/dL (28.0-37.0); MCV 93.9 fL (80.0-100.0); MONOCYTES 9.6 %; MPV 6.9 fl. (7.2-11.1); NUCLEATED RBCS 0 /100WBC; PLATELET COUNT* 82 thou/uL (150-400); POLYS 76.8 %; RBC 3.59 mil/uL (4.20-5.00); RDW-CV 13.6 % (10.5-14.5); WBC 2.5 thou/uL (4.0-11.0)
[2020-08-21 12:31] LABS: CALCIUM 8.3 mg/dL (8.5-10.1); CREATININE 1.2 mg/dL (0.6-1.3)
[2020-08-21 12:36] LABS: ALBUMIN 3.7 g/dL (3.4-5.0); TOTAL BILIRUBIN 0.8 mg/dL (<0.1-1.0); TOTAL PROTEIN 6.8 g/dL (6.4-8.2)
[2020-08-21] MEDS ORDERED: MECLIZINE HCL25 M1 PO (12:56)
[2020-08-21 13:20] VITALS: BP 160/63
--- NOTE | 2020-08-21 18:25 | EKG ---
[place] [address] ELECTROCARDIOGRAM REPORT Name: MARGARETMARKJARETH BLAIR Room: [facility]#: [id number] Admission: 08/21/20 Attend Phys: Discharge: 08/21/20 Date of : 30 Date of Service: 08/21/20 1217 Report #: [id number] THIS REPORT FOR: //name// [facility] ED Test Date: 2020-08-21 Test Time: 12:17:59 Pat Name: NERIS ROBLES Department: Room: Gender: F [employer]: : 1930 Requested By: Matt Dumont Order Number: [id number] MD: Anjum Avila Measurements Intervals [place] Rate: 76 P: 54 DE: 186 QRS: 46 QRSD: 92 T: 54 QT: 400 QTc: 450 Interpretive Statements Sinus rhythm Borderline low voltage, extremity leads Baseline wander in lead(s) V3 Compared to ECG 12/02/2018 12:32:37 Ventricular premature complex(es) no longer present Electronically Signed On 08-21-2020 18:25:07 IMPROVEMENT AUDITOR by Anjum Avila [email or web address] <ELECTRONICALLY SIGNED> By: South Avila MD, [facility] 08/21/20 1825 16 121 South Avila MD, [facility] /EPI
== END 2020-08-21 13:20 | disposition home or self-care (01) ==
LOC: M.ERS 11:24
PROVIDERS: Emergency Medicine
DX: R42 Dizziness and giddiness (principal); H83.09 Labyrinthitis, unspecified ear; E78.5 Hyperlipidemia, unspecified; K21.9 Gastro-esophageal reflux disease without esophagitis; Z79.899 Other long term (current) drug therapy; Z79.82 Long term (current) use of aspirin; Z88.0 Allergy status to penicillin; Z88.8 Allergy status to other drugs, medicaments and biological substances

== ENCOUNTER 2020-09-07 07:53 | Emergency (ER) | payer OTHER ==
[~2020-09-07] VITALS: Ht 172.7 cm; Wt 65.5 kg
[2020-09-07] MEDS ORDERED: NORCO 5-325 TA1 EAC2 PO (09:38)
[2020-09-07 09:59] VITALS: BP 125/44
== END 2020-09-07 10:01 | disposition home or self-care (01) ==
LOC: M.ERS 07:53
DX: M54.2 Cervicalgia (principal); M54.6 Pain in thoracic spine; K21.9 Gastro-esophageal reflux disease without esophagitis; I10 Essential (primary) hypertension; E78.5 Hyperlipidemia, unspecified; Z88.0 Allergy status to penicillin; Z88.8 Allergy status to other drugs, medicaments and biological substances; Z85.048 Personal history of other malignant neoplasm of rectum, rectosigmoid junction, and anus; Z87.01 Personal history of pneumonia (recurrent)